=== PATIENT | male | born 2000 | race Caucasian/White ===

== ENCOUNTER → 2021-03-08 | Outpatient (CLI) | payer BC ==
--- NOTE | 2021-03-15 08:57 | HM ---
This is a 24 hour Holter monitor report. Patient did not maintain a diary. Baseline rhythm is sinus. The average heart rate is 81. The minimum rate is 45 and a maximum rate is 161. Rare APCs and draped PVCs were noted. Sinus bradycardia is mostly noted during sleep hours. A sinus pause of 2.5 seconds was noted at 5:53 PM. Not associated with any symptoms. Patient actually did not maintain a diary and did not use any markers. Final impression:. #1. Sinus rhythm. #2. Sinus arrhythmia and sinus bradycardia. 3. Sinus bradycardia is mostly during sleep hours. #4. Rare APCs and PVCs and a single pause of about 2.4 seconds unassociated with any symptoms. MTDD
== END | disposition home or self-care (01) ==
LOC: RADECHMAIN 11:55
PROVIDERS: ATTEND Internal Medicine Critical Care Medicine
DX: I49.8 Other specified cardiac arrhythmias (principal); R00.1 Bradycardia, unspecified; I49.3 Ventricular premature depolarization
CPT/HCPCS: 93225; 93226